=== PATIENT | female | born 1960 | race Caucasian/White ===

== ENCOUNTER 2021-08-13 11:48 | Inpatient (IN) ==
[2021-08-13] MEDS ORDERED: tiZANidine 4 MG TABLET PO PRN (12:29)
[2021-08-13] MEDS: Nystatin POWDER 30 GM BOTTLE TP SCH ×3 (16:16→21:02)
[2021-08-13] MEDS: Gabapentin 300 MG CAPSULE PO SCH ×2 (16:16→21:02)
[2021-08-13] MEDS ORDERED: Acetaminophen 325 MG TABLET PO PRN (16:37)
[2021-08-13] MEDS ORDERED: *HR* Warfarin 3 MG TABLET PO ONE (18:00)
[2021-08-13] MEDS ORDERED: Acetaminophen 325 MG TABLET PO SCH (18:00)
[2021-08-13] MEDS ORDERED: Warfarin perPT PO PRN (18:00)
[2021-08-13] MEDS: Budesonide/Formoterol 80/4.5 1 PUFF INH IH SCH (20:28)
[2021-08-13] MEDS: Metoprolol XL (24 HR) Succ 25 MG TAB.ER.24H PO SCH (20:59)
[2021-08-13] MEDS: Magnesium Oxide 400 MG TABLET PO SCH (21:00)
[2021-08-13] MEDS: Topiramate 25 MG TABLET PO SCH (21:00)
[2021-08-14 05:59] LABS: Basophils % 0.4 %; Eosinophils # 0.5 K/mcL (0.0-0.6); Eosinophils % 7.5 %; Hematocrit 26.3 % (35.3-44.9); Hemoglobin 7.9 g/dL (11.5-15.4); Immature Granulocytes % 1.8 % (0-4); Lymphocytes % 14.3 %; Mean Corpuscular Hemoglobin 29.3 pg (28.0-33.3); Mean Corpuscular Volume 97.4 fL (83.0-100.0); Mean Platelet Volume 9.1 fL (9.4-12.4); Monocytes # 0.9 K/mcL (0.0-1.3); Monocytes % 11.8 %; Neutrophils # 4.6 K/mcL (1.6-8.9); Nucleated Red Blood Cells 0.6 /100 WBC (0); Platelet Count 305 K/mcL (140-400); Red Cell Distribution Width 17.3 % (11.5-14.5); Segmented Neutrophils % 64.2 %; White Blood Count 7.2 K/mcL (4.3-11.1)
[2021-08-14 06:05] LABS: INR 4.3
[2021-08-14 06:10] LABS: Prothrombin Time 47.5 Seconds (9.4-12.1)
[2021-08-14 06:22] LABS: BUN/Creatinine Ratio 17 (6-26); Blood Urea Nitrogen 14 mg/dL (6-20); Calcium 8.2 mg/dL (8.6-10.3); Carbon Dioxide 31 mEq/L (23-29); Chloride 98 mEq/L (98-107); Digoxin 0.8 ng/mL (0.8-2.0); Glucose 114 mg/dL (70-105); Osmolality,Calculated 279 (280-300); Potassium 4.2 mEq/L (3.5-5.1); Sodium 134 mEq/L (136-145); eGFR For African Americans > 60 (> 60); eGFR For Non-African Americans > 60 (> 60)
[2021-08-14] MEDS: Topiramate 25 MG TABLET PO SCH ×2 (08:28→20:32)
[2021-08-14] MEDS: Magnesium Oxide 400 MG TABLET PO SCH ×2 (08:28→21:12)
[2021-08-14] MEDS: Metoprolol XL (24 HR) Succ 25 MG TAB.ER.24H PO SCH ×2 (08:28→20:32)
[2021-08-14] MEDS: Nystatin POWDER 30 GM BOTTLE TP SCH ×4 (08:29→20:32)
[2021-08-14] MEDS: Gabapentin 300 MG CAPSULE PO SCH ×3 (08:29→20:32)
[2021-08-14] MEDS ORDERED: *HR* Warfarin 5 MG TABLET PO SCH (09:00)
[2021-08-14] MEDS ORDERED: *HR* Digoxin 0.125 MG TABLET PO SCH (09:00)
[2021-08-14] MEDS ORDERED: Bumetanide 1 MG TABLET PO SCH (09:00)
[2021-08-14] MEDS ORDERED: Primidone 50 MG TABLET PO SCH (09:00)
[2021-08-14] MEDS ORDERED: Tiotropium 10 INH DOSE IH SCH (10:00)
[2021-08-14] MEDS: Budesonide/Formoterol 80/4.5 1 PUFF INH IH SCH ×2 (10:43→21:21)
[2021-08-14] MEDS ORDERED: 0.9 % Sodium Chloride 500 ML IVC PRN (19:53)
[2021-08-14 20:16] LABS: Basophils % 0.5 %; Eosinophils # 0.4 K/mcL (0.0-0.6); Eosinophils % 6.2 %; Hematocrit 24.9 % (35.3-44.9); Hemoglobin 7.5 g/dL (11.5-15.4); Immature Granulocytes % 1.7 % (0-4); Lymphocytes % 14.4 %; Mean Corpuscular HGB Conc 30.1 g/dL (31.6-35.5); Mean Corpuscular Hemoglobin 29.2 pg (28.0-33.3); Mean Corpuscular Volume 96.9 fL (83.0-100.0); Mean Platelet Volume 9.2 fL (9.4-12.4); Monocytes # 0.8 K/mcL (0.0-1.3); Monocytes % 11.7 %; Neutrophils # 4.4 K/mcL (1.6-8.9); Nucleated Red Blood Cells 0.6 /100 WBC (0); Platelet Count 302 K/mcL (140-400); Red Blood Count 2.57 M/mcL (3.82-4.97); Red Cell Distribution Width 17.3 % (11.5-14.5); Segmented Neutrophils % 65.5 %; White Blood Count 6.7 K/mcL (4.3-11.1)
[2021-08-14 20:18] LABS: INR 4.1
[2021-08-14 20:24] LABS: Prothrombin Time 45.3 Seconds (9.4-12.1)
[2021-08-14] MEDS: Piperacillin/Tazobactam 3.375 GM in 0.9 % Sodium Chloride Mini Bag 100 ML IVPB SCH ×2 (20:46→23:42)
[2021-08-14 21:27] VITALS: RESP 17
[2021-08-14] MEDS ORDERED: Piperacillin/Tazobactam 3.375 GM in 0.9 % Sodium Chloride Mini Bag 100 ML IVPB SCH (22:00)
[2021-08-14] MEDS ORDERED: Morphine Sulfate 2 MG/ML SYRINGE IVP ONE (23:58)
[2021-08-15] MEDS ORDERED: Ringers Solution, Lactated 500 ML IVC ONE
[2021-08-15 00:45] VITALS: BP 115/73; PULSE 88; TEMP 97.9; O2SAT 93
[2021-08-15] MEDS ORDERED: *HR* Warfarin 5 MG TABLET PO SCH (09:00)
[2021-08-16 02:32] LABS: ABG Base Excess 1 mEq/L (-2 to 3); ABG HCO3 26 mEq/L (21-27); ABG Oxygen Saturation 92 % (95-98); ABG PCO2 38 mmHg (35-45); ABG PH 7.44 pH Units (7.32-7.45); ABG PO2 60 mmHg (85-104); ABG TCO2 27 mEq/L (20-26)
== END 2021-08-15 01:54 | disposition short-term general hospital (02) | DRG 920 ==
LOC: INPGRE 15:35
PROVIDERS: ADMIT Family Medicine; ATTEND Family Medicine

== ENCOUNTER 2021-08-15 17:46 | Inpatient (IN) ==
[2021-08-15] MEDS ORDERED: tiZANidine 4 MG TABLET PO PRN (20:55)
[2021-08-15] MEDS: Budesonide/Formoterol 80/4.5 1 PUFF INH IH SCH (21:50)
[2021-08-15] MEDS: Magnesium Oxide 400 MG TABLET PO SCH (21:57)
[2021-08-15] MEDS: Gabapentin 300 MG CAPSULE PO SCH (21:57)
[2021-08-15] MEDS: Topiramate 25 MG TABLET PO SCH (21:57)
[2021-08-15] MEDS: Metoprolol XL (24 HR) Succ 25 MG TAB.ER.24H PO SCH (21:58)
[2021-08-15] MEDS: Nystatin POWDER 30 GM BOTTLE TP SCH (22:03)
[2021-08-16] MEDS: Acetaminophen 325 MG TABLET PO SCH ×5 (00:37→23:59)
[2021-08-16] MEDS: 0.9 % Sodium Chloride 500 ML IVC SCH ×2 (04:42→08:40)
[2021-08-16 04:57] LABS: INR 3.3; Prothrombin Time 36.5 Seconds (9.4-12.1)
[2021-08-16 05:45] LABS: Adenovirus Not Detected (Not Detect); Bordetella Pertussis Not Detected (Not Detect); Chlamydophila pneumoniae Not Detected (Not Detect); Coronavirus 229E Not Detected (Not Detect); Coronavirus HKU1 Not Detected (Not Detect); Coronavirus NL63 Not Detected (Not Detect); Coronavirus OC43 Not Detected (Not Detect); Human Metapneumovirus Not Detected (Not Detect); Human Rhinovirus/Enterovirus Not Detected (Not Detect); Influenza A Subtype 2009 H1 Not Detected (Not Detect); Influenza B Not Detected (Not Detect); Mycoplasma pneumoniae Not Detected (Not Detect); Parainfluenza Virus 1 Not Detected (Not Detect); Parainfluenza Virus 2 Not Detected (Not Detect); Parainfluenza Virus 3 Not Detected (Not Detect); Parainfluenza Virus 4 Not Detected (Not Detect); Respiratory Syncytial Virus Not Detected (Not Detect); SARS-CoV-2 Not Detected (Not Detect)
[2021-08-16 08:04] LABS: Hematocrit 24.2 % (35.3-44.9); Hemoglobin 7.4 g/dL (11.5-15.4); Mean Corpuscular HGB Conc 30.6 g/dL (31.6-35.5); Mean Corpuscular Volume 94.9 fL (83.0-100.0); Mean Platelet Volume 9.3 fL (9.4-12.4); Platelet Count 251 K/mcL (140-400); Red Blood Count 2.55 M/mcL (3.82-4.97); Red Cell Distribution Width 17.6 % (11.5-14.5)
[2021-08-16 08:25] LABS: Alanine Aminotransferase 10 Units/L (7-52); Albumin 2.3 g/dL (3.5-5.7); Albumin/Globulin Ratio 0.7 (1.1-2.2); Alkaline Phosphatase 65 Units/L (34-104); Aspartate Amino Transferase 14 Units/L (13-39); BUN/Creatinine Ratio 16 (6-26); Bilirubin,Total 0.5 mg/dL (0.3-1.0); Blood Urea Nitrogen 12 mg/dL (6-20); Calcium 7.8 mg/dL (8.6-10.3); Carbon Dioxide 31 mEq/L (23-29); Chloride 100 mEq/L (98-107); Globulin 3.2 g/dL (2.4-3.5); Glucose 95 mg/dL (70-105); Magnesium 1.9 mg/dL (1.6-2.6); Osmolality,Calculated 280 (280-300); Phosphorous 3.1 mg/dL (2.7-4.5); Sodium 135 mEq/L (136-145); Total Protein 5.5 g/dL (6.4-8.9); eGFR For African Americans > 60 (> 60); eGFR For Non-African Americans > 60 (> 60)
[2021-08-16] MEDS: cefTRIAXone 1,000 MG in 0.9 % Sodium Chloride 10 ML IVP SCH (08:26)
[2021-08-16] MEDS: Bumetanide 1 MG TABLET PO SCH (08:27)
[2021-08-16] MEDS: Azithromycin 250 MG TABLET PO SCH (08:27)
[2021-08-16] MEDS: Nystatin POWDER 30 GM BOTTLE TP SCH ×4 (08:27→20:24)
[2021-08-16] MEDS: Topiramate 25 MG TABLET PO SCH ×2 (08:28→20:24)
[2021-08-16] MEDS: *HR* Digoxin 0.125 MG TABLET PO SCH (08:28)
[2021-08-16] MEDS: Lactobacillus 1 EACH CAP.SPRINK PO SCH ×2 (08:28→20:24)
[2021-08-16] MEDS: Metoprolol XL (24 HR) Succ 25 MG TAB.ER.24H PO SCH (08:28)
[2021-08-16] MEDS: Gabapentin 300 MG CAPSULE PO SCH (08:29)
[2021-08-16] MEDS: Primidone 50 MG TABLET PO SCH (08:29)
[2021-08-16] MEDS ORDERED: 0.9 % Sodium Chloride 1,000 ML IVC SCH (09:00)
[2021-08-16] MEDS: Magnesium Oxide 400 MG TABLET PO SCH ×2 (10:01→20:24)
[2021-08-16] MEDS: Tiotropium 10 INH DOSE IH SCH (10:12)
[2021-08-16] MEDS: Budesonide/Formoterol 80/4.5 1 PUFF INH IH SCH ×2 (10:13→20:27)
[2021-08-16 15:00] LABS: Bilirubin,Urine Negative (Negative); Blood,Urine Negative (Negative); Clarity,Urine Clear (Clear); Color,Urine Yellow (Yellow); Glucose,Urine (UA) Normal (Normal); Ketones,Urine Negative (Negative); Leukocyte Esterase,Urine Small (Negative); Nitrite,Urine Negative (Negative); PH,Urine 6.5 pH Units (5.0-8.0); Protein,Urine Negative (Neg-Trace); Specific Gravity,Urine 1.015 (1.010-1.025); Urobilinogen,Urine Normal (Normal)
[2021-08-16 15:07] LABS: WBC,Urine 30-50 per hpf (0-3)
[2021-08-16 15:38] LABS: ABG Base Excess 2 mEq/L (-2 to 3); ABG HCO3 28 mEq/L (21-27); ABG Oxygen Saturation 90 % (95-98); ABG PCO2 50 mmHg (35-45); ABG PH 7.36 pH Units (7.32-7.45); ABG PO2 62 mmHg (85-104); ABG TCO2 30 mEq/L (20-26)
[2021-08-16] MEDS ORDERED: *HR* Warfarin 5 MG TABLET PO ONE (18:00)
[2021-08-16] MEDS ORDERED: Warfarin perPT PO PRN (18:00)
[2021-08-17 04:32] LABS: Hematocrit 25.4 % (35.3-44.9); Hemoglobin 7.8 g/dL (11.5-15.4); Mean Corpuscular HGB Conc 30.7 g/dL (31.6-35.5); Mean Corpuscular Hemoglobin 29.4 pg (28.0-33.3); Mean Corpuscular Volume 95.8 fL (83.0-100.0); Mean Platelet Volume 9.6 fL (9.4-12.4); Platelet Count 243 K/mcL (140-400); Red Blood Count 2.65 M/mcL (3.82-4.97); Red Cell Distribution Width 17.9 % (11.5-14.5)
[2021-08-17 04:35] LABS: INR 3.5; Prothrombin Time 38.6 Seconds (9.4-12.1)
[2021-08-17 04:50] LABS: Alanine Aminotransferase 11 Units/L (7-52); Albumin 2.3 g/dL (3.5-5.7); Albumin/Globulin Ratio 0.7 (1.1-2.2); Alkaline Phosphatase 64 Units/L (34-104); Aspartate Amino Transferase 14 Units/L (13-39); BUN/Creatinine Ratio 15 (6-26); Bilirubin,Total 0.4 mg/dL (0.3-1.0); Blood Urea Nitrogen 12 mg/dL (6-20); Calcium 7.8 mg/dL (8.6-10.3); Carbon Dioxide 31 mEq/L (23-29); Chloride 104 mEq/L (98-107); Globulin 3.3 g/dL (2.4-3.5); Glucose 104 mg/dL (70-105); Magnesium 1.7 mg/dL (1.6-2.6); Osmolality,Calculated 284 (280-300); Potassium 4.1 mEq/L (3.5-5.1); Sodium 137 mEq/L (136-145); Total Protein 5.6 g/dL (6.4-8.9); eGFR For African Americans > 60 (> 60); eGFR For Non-African Americans > 60 (> 60)
[2021-08-17] MEDS: Azithromycin 250 MG TABLET PO SCH (07:31)
[2021-08-17] MEDS: Acetaminophen 325 MG TABLET PO SCH ×3 (07:31→17:22)
[2021-08-17] MEDS: cefTRIAXone 1,000 MG in 0.9 % Sodium Chloride 10 ML IVP SCH (07:32)
[2021-08-17] MEDS: Primidone 50 MG TABLET PO SCH (07:32)
[2021-08-17] MEDS: Topiramate 25 MG TABLET PO SCH ×2 (07:32→20:49)
[2021-08-17] MEDS: *HR* Digoxin 0.125 MG TABLET PO SCH (07:32)
[2021-08-17] MEDS: Magnesium Oxide 400 MG TABLET PO SCH ×2 (07:32→20:49)
[2021-08-17] MEDS: Lactobacillus 1 EACH CAP.SPRINK PO SCH ×2 (07:32→20:49)
[2021-08-17] MEDS: Metoprolol XL (24 HR) Succ 25 MG TAB.ER.24H PO SCH (07:34)
[2021-08-17] MEDS: Nystatin POWDER 30 GM BOTTLE TP SCH ×4 (07:38→20:50)
[2021-08-17 11:37] LABS: % Iron Saturation 14 % (15-50); Iron 32 mcg/dL (50-170); Transferrin 169 mg/dL (203-362)
[2021-08-17] MEDS: Tiotropium 10 INH DOSE IH SCH (11:50)
[2021-08-17] MEDS: Budesonide/Formoterol 80/4.5 1 PUFF INH IH SCH ×2 (11:51→19:59)
[2021-08-17] MEDS ORDERED: *HR* Warfarin 4 MG TABLET PO ONE (18:00)
[2021-08-18] MEDS: Acetaminophen 325 MG TABLET PO SCH ×2 (04:31→06:13)
[2021-08-18 05:35] LABS: Hematocrit 24.3 % (35.3-44.9); Hemoglobin 7.3 g/dL (11.5-15.4); Mean Corpuscular Hemoglobin 28.6 pg (28.0-33.3); Mean Corpuscular Volume 95.3 fL (83.0-100.0); Mean Platelet Volume 9.8 fL (9.4-12.4); Platelet Count 238 K/mcL (140-400); Red Blood Count 2.55 M/mcL (3.82-4.97); Red Cell Distribution Width 17.7 % (11.5-14.5)
[2021-08-18 05:42] LABS: INR 3.3
[2021-08-18 05:56] LABS: Alanine Aminotransferase 12 Units/L (7-52); Albumin 2.5 g/dL (3.5-5.7); Albumin/Globulin Ratio 0.8 (1.1-2.2); Alkaline Phosphatase 68 Units/L (34-104); Aspartate Amino Transferase 19 Units/L (13-39); BUN/Creatinine Ratio 16 (6-26); Bilirubin,Total 0.4 mg/dL (0.3-1.0); Blood Urea Nitrogen 13 mg/dL (6-20); Calcium 7.8 mg/dL (8.6-10.3); Carbon Dioxide 29 mEq/L (23-29); Chloride 101 mEq/L (98-107); Globulin 3.2 g/dL (2.4-3.5); Glucose 95 mg/dL (70-105); Magnesium 1.5 mg/dL (1.6-2.6); Osmolality,Calculated 280 (280-300); Potassium 4.2 mEq/L (3.5-5.1); Sodium 135 mEq/L (136-145); Total Protein 5.7 g/dL (6.4-8.9); eGFR For African Americans > 60 (> 60); eGFR For Non-African Americans > 60 (> 60)
[2021-08-18] MEDS: Primidone 50 MG TABLET PO SCH (08:41)
[2021-08-18] MEDS: Nystatin POWDER 30 GM BOTTLE TP SCH ×4 (08:41→21:25)
[2021-08-18] MEDS: Metoprolol XL (24 HR) Succ 25 MG TAB.ER.24H PO SCH (08:42)
[2021-08-18] MEDS: Lactobacillus 1 EACH CAP.SPRINK PO SCH ×2 (08:42→21:24)
[2021-08-18] MEDS: cefTRIAXone 1,000 MG in 0.9 % Sodium Chloride 10 ML IVP SCH (08:42)
[2021-08-18] MEDS: *HR* Digoxin 0.125 MG TABLET PO SCH (08:42)
[2021-08-18] MEDS: Topiramate 25 MG TABLET PO SCH ×2 (08:42→21:25)
[2021-08-18] MEDS: Azithromycin 250 MG TABLET PO SCH (08:42)
[2021-08-18] MEDS: Gabapentin 300 MG CAPSULE PO SCH ×3 (08:42→21:24)
[2021-08-18] MEDS: Magnesium Oxide 400 MG TABLET PO SCH ×2 (08:43→21:24)
[2021-08-18] MEDS: Tiotropium 10 INH DOSE IH SCH (10:00)
[2021-08-18] MEDS: Budesonide/Formoterol 80/4.5 1 PUFF INH IH SCH ×3 (10:02→21:09)
[2021-08-18] MEDS ORDERED: *HR* Warfarin 5 MG TABLET PO ONE (18:00)
[2021-08-18] MEDS: Acetaminophen 325 MG TABLET PO PRN (21:24)
[2021-08-19 05:07] LABS: INR 2.7; Prothrombin Time 29.8 Seconds (9.4-12.1)
[2021-08-19] MEDS: Tiotropium 10 INH DOSE IH SCH (09:01)
[2021-08-19] MEDS: Budesonide/Formoterol 80/4.5 1 PUFF INH IH SCH ×2 (09:02→20:59)
[2021-08-19] MEDS: cefTRIAXone 1,000 MG in 0.9 % Sodium Chloride 10 ML IVP SCH (09:14)
[2021-08-19] MEDS: Primidone 50 MG TABLET PO SCH (09:17)
[2021-08-19] MEDS: Gabapentin 300 MG CAPSULE PO SCH ×3 (09:17→19:53)
[2021-08-19] MEDS: Magnesium Oxide 400 MG TABLET PO SCH ×2 (09:18→19:53)
[2021-08-19] MEDS: Bumetanide 1 MG TABLET PO SCH (09:19)
[2021-08-19] MEDS: Topiramate 25 MG TABLET PO SCH ×2 (09:19→19:54)
[2021-08-19] MEDS: Lactobacillus 1 EACH CAP.SPRINK PO SCH ×2 (09:19→19:54)
[2021-08-19] MEDS: Metoprolol XL (24 HR) Succ 25 MG TAB.ER.24H PO SCH (09:19)
[2021-08-19] MEDS: Nystatin POWDER 30 GM BOTTLE TP SCH ×4 (09:19→19:55)
[2021-08-19] MEDS: *HR* Digoxin 0.125 MG TABLET PO SCH (09:19)
[2021-08-19] MEDS ORDERED: *HR* Warfarin 7.5 MG TABLET PO ONE (18:00)
[2021-08-20 05:40] LABS: Hematocrit 24.5 % (35.3-44.9); Hemoglobin 7.2 g/dL (11.5-15.4); Mean Corpuscular HGB Conc 29.4 g/dL (31.6-35.5); Mean Corpuscular Hemoglobin 28.6 pg (28.0-33.3); Mean Corpuscular Volume 97.2 fL (83.0-100.0); Mean Platelet Volume 9.9 fL (9.4-12.4); Platelet Count 212 K/mcL (140-400); Red Blood Count 2.52 M/mcL (3.82-4.97); Red Cell Distribution Width 18.6 % (11.5-14.5); White Blood Count 6.6 K/mcL (4.3-11.1)
[2021-08-20 06:05] LABS: Alanine Aminotransferase 10 Units/L (7-52); Albumin 2.4 g/dL (3.5-5.7); Albumin/Globulin Ratio 0.8 (1.1-2.2); Alkaline Phosphatase 62 Units/L (34-104); Aspartate Amino Transferase 14 Units/L (13-39); BUN/Creatinine Ratio 16 (6-26); Bilirubin,Total 0.4 mg/dL (0.3-1.0); Blood Urea Nitrogen 14 mg/dL (6-20); Calcium 7.9 mg/dL (8.6-10.3); Carbon Dioxide 31 mEq/L (23-29); Chloride 99 mEq/L (98-107); Globulin 3.1 g/dL (2.4-3.5); Glucose 92 mg/dL (70-105); Magnesium 1.5 mg/dL (1.6-2.6); Osmolality,Calculated 272 (280-300); Potassium 4.1 mEq/L (3.5-5.1); Sodium 131 mEq/L (136-145); Total Protein 5.5 g/dL (6.4-8.9); eGFR For African Americans > 60 (> 60); eGFR For Non-African Americans > 60 (> 60)
[2021-08-20 06:51] LABS: INR 2.3; Prothrombin Time 25.2 Seconds (9.4-12.1)
[2021-08-20] MEDS: Tiotropium 10 INH DOSE IH SCH (08:01)
[2021-08-20] MEDS: Budesonide/Formoterol 80/4.5 1 PUFF INH IH SCH (08:01)
[2021-08-20] MEDS: Lactobacillus 1 EACH CAP.SPRINK PO SCH ×2 (09:18→21:25)
[2021-08-20] MEDS: Gabapentin 300 MG CAPSULE PO SCH ×3 (09:18→21:26)
[2021-08-20] MEDS: Bumetanide 1 MG TABLET PO SCH (09:18)
[2021-08-20] MEDS: Magnesium Oxide 400 MG TABLET PO SCH ×2 (09:18→21:25)
[2021-08-20] MEDS: Topiramate 25 MG TABLET PO SCH ×2 (09:18→21:26)
[2021-08-20] MEDS: Primidone 50 MG TABLET PO SCH (09:18)
[2021-08-20] MEDS: cefTRIAXone 1,000 MG in 0.9 % Sodium Chloride 10 ML IVP SCH (09:19)
[2021-08-20] MEDS: *HR* Digoxin 0.125 MG TABLET PO SCH (09:19)
[2021-08-20] MEDS: Metoprolol XL (24 HR) Succ 25 MG TAB.ER.24H PO SCH (09:19)
[2021-08-20] MEDS: Nystatin POWDER 30 GM BOTTLE TP SCH ×4 (09:20→21:26)
[2021-08-20] MEDS ORDERED: tiZANidine 4 MG TABLET PO PRN (17:21)
[2021-08-20] MEDS ORDERED: *HR* Warfarin 5 MG TABLET PO ONE (18:00)
[2021-08-20] MEDS ORDERED: Budesonide/Formoterol 80/4.5 1 PUFF INH IH SCH (18:00)
[2021-08-20] MEDS ORDERED: Tiotropium 10 INH DOSE IH SCH (18:00)
[2021-08-20] MEDS: Acetaminophen 325 MG TABLET PO PRN (18:07)
[2021-08-21] MEDS: Tiotropium 10 INH DOSE IH SCH (12:57)
[2021-08-21] MEDS ORDERED: Albuterol 2.5 MG/3 ML NEBULIZER IH PRN (16:50)
[2021-08-21] MEDS ORDERED: Bumetanide 1 MG TABLET PO ONE (16:52)
[2021-08-21] MEDS: Budesonide/Formoterol 80/4.5 1 PUFF INH IH SCH (18:28)
[2021-08-21] MEDS: Nystatin POWDER 30 GM BOTTLE TP SCH ×2 (18:44→22:25)
[2021-08-21] MEDS ORDERED: *HR* Warfarin 7.5 MG TABLET PO ONE (20:30)
[2021-08-21] MEDS: Gabapentin 300 MG CAPSULE PO SCH (20:36)
[2021-08-21] MEDS: Lactobacillus 1 EACH CAP.SPRINK PO SCH (20:37)
[2021-08-21] MEDS: Primidone 50 MG TABLET PO SCH (20:39)
[2021-08-21] MEDS: Magnesium Oxide 400 MG TABLET PO SCH (20:40)
[2021-08-21] MEDS: Melatonin 3 MG TABLET PO PRN (20:41)
[2021-08-21] MEDS: Topiramate 25 MG TABLET PO SCH (20:41)
[2021-08-21] MEDS: tiZANidine 4 MG TABLET PO PRN (20:57)
[2021-08-22 04:57] LABS: Basophils % 0.5 %; Eosinophils # 0.3 K/mcL (0.0-0.6); Eosinophils % 4.8 %; Hematocrit 23.4 % (35.3-44.9); Hemoglobin 7.1 g/dL (11.5-15.4); INR 2.4; Lymphocytes # 1.2 K/mcL (0.6-4.6); Lymphocytes % 21.5 %; Mean Corpuscular HGB Conc 30.3 g/dL (31.6-35.5); Mean Corpuscular Volume 95.5 fL (83.0-100.0); Mean Platelet Volume 9.7 fL (9.4-12.4); Monocytes # 0.7 K/mcL (0.0-1.3); Monocytes % 11.9 %; Neutrophils # 3.3 K/mcL (1.6-8.9); Nucleated Red Blood Cells 0.5 /100 WBC (0); Platelet Count 193 K/mcL (140-400); Prothrombin Time 26.7 Seconds (9.4-12.1); Red Blood Count 2.45 M/mcL (3.82-4.97); Red Cell Distribution Width 18.7 % (11.5-14.5); Segmented Neutrophils % 59.3 %; White Blood Count 5.6 K/mcL (4.3-11.1)
[2021-08-22 05:10] LABS: BUN/Creatinine Ratio 18 (6-26); Blood Urea Nitrogen 15 mg/dL (6-20); Calcium 8.1 mg/dL (8.6-10.3); Carbon Dioxide 31 mEq/L (23-29); Chloride 102 mEq/L (98-107); Glucose 96 mg/dL (70-105); Osmolality,Calculated 285 (280-300); Potassium 4.4 mEq/L (3.5-5.1); Sodium 137 mEq/L (136-145); eGFR For African Americans > 60 (> 60); eGFR For Non-African Americans > 60 (> 60)
[2021-08-22] MEDS: Tiotropium 10 INH DOSE IH SCH (07:53)
[2021-08-22] MEDS: Budesonide/Formoterol 80/4.5 1 PUFF INH IH SCH ×2 (07:54→18:57)
[2021-08-22] MEDS: Lactobacillus 1 EACH CAP.SPRINK PO SCH ×2 (08:19→22:14)
[2021-08-22] MEDS: Topiramate 25 MG TABLET PO SCH ×2 (08:20→22:13)
[2021-08-22] MEDS: Gabapentin 300 MG CAPSULE PO SCH ×3 (08:20→22:13)
[2021-08-22] MEDS: Magnesium Oxide 400 MG TABLET PO SCH ×2 (08:20→22:12)
[2021-08-22] MEDS: Nystatin POWDER 30 GM BOTTLE TP SCH ×4 (08:23→22:14)
[2021-08-22] MEDS: *HR* Digoxin 0.125 MG TABLET PO SCH (08:31)
[2021-08-22] MEDS: Metoprolol XL (24 HR) Succ 25 MG TAB.ER.24H PO SCH (08:32)
[2021-08-22] MEDS: tiZANidine 4 MG TABLET PO PRN ×2 (13:11→22:13)
[2021-08-22] MEDS: Bumetanide 1 MG TABLET PO SCH (13:44)
[2021-08-22] MEDS ORDERED: *HR* Warfarin 7.5 MG TABLET PO ONE (18:00)
[2021-08-22] MEDS ORDERED: Furosemide 20 MG/2 ML VIAL IVP ONE (18:37)
[2021-08-22] MEDS: Primidone 50 MG TABLET PO SCH (22:14)
[2021-08-22] MEDS: Melatonin 3 MG TABLET PO PRN (22:14)
[2021-08-23 04:42] LABS: Hematocrit 22.3 % (35.3-44.9); Hemoglobin 6.8 g/dL (11.5-15.4); Mean Corpuscular HGB Conc 30.5 g/dL (31.6-35.5); Mean Corpuscular Hemoglobin 29.8 pg (28.0-33.3); Mean Corpuscular Volume 97.8 fL (83.0-100.0); Mean Platelet Volume 9.8 fL (9.4-12.4); Platelet Count 199 K/mcL (140-400); Red Blood Count 2.28 M/mcL (3.82-4.97); Red Cell Distribution Width 19.1 % (11.5-14.5); White Blood Count 6.3 K/mcL (4.3-11.1)
[2021-08-23 04:48] LABS: INR 2.6; Prothrombin Time 28.8 Seconds (9.4-12.1)
[2021-08-23] MEDS: Tiotropium 10 INH DOSE IH SCH (07:42)
[2021-08-23] MEDS: Budesonide/Formoterol 80/4.5 1 PUFF INH IH SCH ×2 (07:42→19:32)
[2021-08-23] MEDS ORDERED: Furosemide 20 MG/2 ML VIAL IVP ONE (08:23)
[2021-08-23] MEDS: *HR* Digoxin 0.125 MG TABLET PO SCH (08:27)
[2021-08-23] MEDS: Topiramate 25 MG TABLET PO SCH ×2 (08:27→19:43)
[2021-08-23] MEDS: Lactobacillus 1 EACH CAP.SPRINK PO SCH ×2 (08:27→19:41)
[2021-08-23] MEDS: Metoprolol XL (24 HR) Succ 25 MG TAB.ER.24H PO SCH (08:27)
[2021-08-23] MEDS: Gabapentin 300 MG CAPSULE PO SCH ×3 (08:27→19:41)
[2021-08-23] MEDS: Bumetanide 1 MG TABLET PO SCH (08:27)
[2021-08-23] MEDS: Cyanocobalamin (B-12) 1,000 MCG TABLET PO SCH (08:27)
[2021-08-23] MEDS: Magnesium Oxide 400 MG TABLET PO SCH ×2 (08:27→19:43)
[2021-08-23] MEDS ORDERED: 0.9 % Sodium Chloride 250 ML IVC SCH (08:30)
[2021-08-23] MEDS: Nystatin POWDER 30 GM BOTTLE TP SCH ×4 (09:00→19:44)
[2021-08-23] MEDS ORDERED: *HR* Warfarin 7.5 MG TABLET PO ONE (18:00)
[2021-08-23] MEDS: Melatonin 3 MG TABLET PO PRN (19:41)
[2021-08-23] MEDS: Acetaminophen 325 MG TABLET PO PRN (19:42)
[2021-08-23] MEDS: tiZANidine 4 MG TABLET PO PRN (19:43)
[2021-08-23] MEDS: Primidone 50 MG TABLET PO SCH (19:43)
[2021-08-24] MEDS ORDERED: 0.9 % Sodium Chloride 250 ML IV ONE (02:32)
[2021-08-24 04:42] LABS: Hemoglobin 7.8 g/dL (11.5-15.4); Mean Corpuscular Hemoglobin 29.3 pg (28.0-33.3); Mean Corpuscular Volume 97.7 fL (83.0-100.0); Mean Platelet Volume 9.7 fL (9.4-12.4); Platelet Count 202 K/mcL (140-400); Red Blood Count 2.66 M/mcL (3.82-4.97); Red Cell Distribution Width 18.6 % (11.5-14.5); White Blood Count 5.9 K/mcL (4.3-11.1)
[2021-08-24 04:43] LABS: INR 2.3; Prothrombin Time 25.7 Seconds (9.4-12.1)
[2021-08-24 04:57] LABS: Alanine Aminotransferase 10 Units/L (7-52); Albumin 2.5 g/dL (3.5-5.7); Albumin/Globulin Ratio 0.8 (1.1-2.2); Alkaline Phosphatase 62 Units/L (34-104); Aspartate Amino Transferase 12 Units/L (13-39); BUN/Creatinine Ratio 18 (6-26); Bilirubin,Total 0.3 mg/dL (0.3-1.0); Blood Urea Nitrogen 15 mg/dL (6-20); Carbon Dioxide 31 mEq/L (23-29); Chloride 103 mEq/L (98-107); Glucose 96 mg/dL (70-105); Magnesium 1.6 mg/dL (1.6-2.6); Osmolality,Calculated 287 (280-300); Potassium 4.2 mEq/L (3.5-5.1); Sodium 138 mEq/L (136-145); Total Protein 5.5 g/dL (6.4-8.9); eGFR For African Americans > 60 (> 60); eGFR For Non-African Americans > 60 (> 60)
[2021-08-24] MEDS: Tiotropium 10 INH DOSE IH SCH (07:27)
[2021-08-24] MEDS: Budesonide/Formoterol 80/4.5 1 PUFF INH IH SCH ×2 (07:27→19:03)
[2021-08-24] MEDS: Gabapentin 300 MG CAPSULE PO SCH ×3 (09:00→19:34)
[2021-08-24] MEDS: Lactobacillus 1 EACH CAP.SPRINK PO SCH ×2 (09:00→19:36)
[2021-08-24] MEDS: Metoprolol XL (24 HR) Succ 25 MG TAB.ER.24H PO SCH (09:00)
[2021-08-24] MEDS: *HR* Digoxin 0.125 MG TABLET PO SCH (09:00)
[2021-08-24] MEDS: Bumetanide 1 MG TABLET PO SCH (09:00)
[2021-08-24] MEDS: Magnesium Oxide 400 MG TABLET PO SCH ×2 (09:00→19:35)
[2021-08-24] MEDS: Cyanocobalamin (B-12) 1,000 MCG TABLET PO SCH (09:01)
[2021-08-24] MEDS: Nystatin POWDER 30 GM BOTTLE TP SCH ×4 (09:01→19:38)
[2021-08-24] MEDS: Topiramate 25 MG TABLET PO SCH ×2 (09:01→19:36)
[2021-08-24] MEDS: tiZANidine 4 MG TABLET PO PRN ×2 (12:11→19:35)
[2021-08-24 12:16] LABS: C-Reactive Protein 27 mg/L (Less than 10); Iron 41 mcg/dL (50-170)
[2021-08-24 12:18] LABS: % Iron Saturation 14 % (15-50); Transferrin 208 mg/dL (203-362)
[2021-08-24 12:41] LABS: Folate 4.3 ng/mL (3.0-16.0)
[2021-08-24] MEDS ORDERED: *HR* Warfarin 5 MG TABLET PO ONE (18:00)
[2021-08-24] MEDS: Primidone 50 MG TABLET PO SCH (19:33)
[2021-08-24] MEDS: Melatonin 3 MG TABLET PO PRN (19:34)
[2021-08-24] MEDS: Acetaminophen 325 MG TABLET PO PRN (19:34)
[2021-08-24] MEDS: TROSPIUM CHLORIDE 20 MG PO SCH (19:37)
[2021-08-25 04:42] LABS: INR 2.6; Prothrombin Time 28.8 Seconds (9.4-12.1)
[2021-08-25] MEDS: Tiotropium 10 INH DOSE IH SCH (07:30)
[2021-08-25] MEDS: Budesonide/Formoterol 80/4.5 1 PUFF INH IH SCH ×2 (07:30→19:09)
[2021-08-25] MEDS: Magnesium Oxide 400 MG TABLET PO SCH ×2 (08:58→20:24)
[2021-08-25] MEDS: Nystatin POWDER 30 GM BOTTLE TP SCH ×4 (08:59→20:24)
[2021-08-25] MEDS: Topiramate 25 MG TABLET PO SCH ×2 (08:59→20:24)
[2021-08-25] MEDS: Cyanocobalamin (B-12) 1,000 MCG TABLET PO SCH (08:59)
[2021-08-25] MEDS: *HR* Digoxin 0.125 MG TABLET PO SCH (08:59)
[2021-08-25] MEDS: Bumetanide 1 MG TABLET PO SCH (08:59)
[2021-08-25] MEDS: Gabapentin 300 MG CAPSULE PO SCH ×3 (08:59→20:24)
[2021-08-25] MEDS: TROSPIUM CHLORIDE 20 MG PO SCH ×2 (09:08→20:25)
[2021-08-25] MEDS: Metoprolol XL (24 HR) Succ 25 MG TAB.ER.24H PO SCH (09:09)
[2021-08-25] MEDS ORDERED: Gabapentin 300 MG CAPSULE PO ONE (10:27)
[2021-08-25] MEDS: Lactobacillus 1 EACH CAP.SPRINK PO SCH ×2 (11:46→20:24)
[2021-08-25] MEDS ORDERED: MOM Conc 10 ML UD.LIQ PO PRN (12:22)
[2021-08-25] MEDS ORDERED: Furosemide 20 MG TABLET PO ONE (15:45)
[2021-08-25] MEDS ORDERED: *HR* Warfarin 7.5 MG TABLET PO ONE (18:00)
[2021-08-25] MEDS: Primidone 50 MG TABLET PO SCH (20:24)
[2021-08-25] MEDS: Acetaminophen 325 MG TABLET PO PRN (22:44)
[2021-08-25] MEDS: Melatonin 3 MG TABLET PO PRN (22:44)
[2021-08-26 04:56] LABS: Basophils % 0.6 %; Eosinophils # 0.3 K/mcL (0.0-0.6); Eosinophils % 4.1 %; Hematocrit 27.8 % (35.3-44.9); Hemoglobin 8.2 g/dL (11.5-15.4); Immature Granulocytes % 0.6 % (0-4); Lymphocytes # 1.1 K/mcL (0.6-4.6); Lymphocytes % 17.5 %; Mean Corpuscular HGB Conc 29.5 g/dL (31.6-35.5); Mean Corpuscular Hemoglobin 28.6 pg (28.0-33.3); Mean Corpuscular Volume 96.9 fL (83.0-100.0); Mean Platelet Volume 9.3 fL (9.4-12.4); Monocytes # 0.7 K/mcL (0.0-1.3); Monocytes % 11.3 %; Neutrophils # 4.2 K/mcL (1.6-8.9); Platelet Count 238 K/mcL (140-400); Red Blood Count 2.87 M/mcL (3.82-4.97); Red Cell Distribution Width 18.5 % (11.5-14.5); Segmented Neutrophils % 65.9 %; White Blood Count 6.4 K/mcL (4.3-11.1)
[2021-08-26 05:01] LABS: INR 2.4; Prothrombin Time 26.9 Seconds (9.4-12.1)
[2021-08-26 05:14] LABS: Alanine Aminotransferase 10 Units/L (7-52); Albumin 2.7 g/dL (3.5-5.7); Albumin/Globulin Ratio 0.8 (1.1-2.2); Alkaline Phosphatase 70 Units/L (34-104); Aspartate Amino Transferase 12 Units/L (13-39); BUN/Creatinine Ratio 16 (6-26); Bilirubin,Total 0.4 mg/dL (0.3-1.0); Blood Urea Nitrogen 15 mg/dL (6-20); Calcium 8.4 mg/dL (8.6-10.3); Carbon Dioxide 35 mEq/L (23-29); Chloride 99 mEq/L (98-107); Globulin 3.2 g/dL (2.4-3.5); Glucose 99 mg/dL (70-105); Osmolality,Calculated 287 (280-300); Potassium 4.5 mEq/L (3.5-5.1); Sodium 138 mEq/L (136-145); Total Protein 5.9 g/dL (6.4-8.9); eGFR For African Americans > 60 (> 60); eGFR For Non-African Americans > 60 (> 60)
[2021-08-26] MEDS: Budesonide/Formoterol 80/4.5 1 PUFF INH IH SCH ×2 (06:49→18:41)
[2021-08-26] MEDS: Tiotropium 10 INH DOSE IH SCH (06:50)
[2021-08-26] MEDS: Topiramate 25 MG TABLET PO SCH ×2 (09:39→20:20)
[2021-08-26] MEDS: Magnesium Oxide 400 MG TABLET PO SCH ×2 (09:39→20:19)
[2021-08-26] MEDS: Gabapentin 300 MG CAPSULE PO SCH ×3 (09:39→20:21)
[2021-08-26] MEDS: tiZANidine 4 MG TABLET PO PRN ×2 (09:39→20:27)
[2021-08-26] MEDS: Lactobacillus 1 EACH CAP.SPRINK PO SCH ×2 (09:40→20:19)
[2021-08-26] MEDS: Bumetanide 1 MG TABLET PO SCH (09:40)
[2021-08-26] MEDS: Metoprolol XL (24 HR) Succ 25 MG TAB.ER.24H PO SCH ×2 (09:40→11:58)
[2021-08-26] MEDS: Cyanocobalamin (B-12) 1,000 MCG TABLET PO SCH (09:41)
[2021-08-26] MEDS: TROSPIUM CHLORIDE 20 MG PO SCH ×2 (09:41→20:23)
[2021-08-26] MEDS: Nystatin POWDER 30 GM BOTTLE TP SCH ×4 (09:44→20:28)
[2021-08-26] MEDS: *HR* Digoxin 0.125 MG TABLET PO SCH (11:23)
[2021-08-26] MEDS: Furosemide 40 MG TABLET PO SCH (14:42)
[2021-08-26] MEDS ORDERED: Furosemide 40 MG TABLET PO ONE (15:36)
[2021-08-26] MEDS ORDERED: *HR* Warfarin 5 MG TABLET PO ONE (18:00)
[2021-08-26] MEDS: Melatonin 3 MG TABLET PO PRN (20:19)
[2021-08-26] MEDS: Acetaminophen 325 MG TABLET PO PRN (20:20)
[2021-08-26] MEDS: Primidone 50 MG TABLET PO SCH (20:20)
[2021-08-27 05:57] LABS: INR 2.5; Prothrombin Time 27.2 Seconds (9.4-12.1)
[2021-08-27] MEDS: Tiotropium 10 INH DOSE IH SCH (08:16)
[2021-08-27] MEDS: Budesonide/Formoterol 80/4.5 1 PUFF INH IH SCH ×2 (08:17→18:47)
[2021-08-27] MEDS: *HR* Digoxin 0.125 MG TABLET PO SCH (09:31)
[2021-08-27] MEDS: Furosemide 40 MG TABLET PO SCH (09:31)
[2021-08-27] MEDS: tiZANidine 4 MG TABLET PO PRN ×2 (09:31→20:47)
[2021-08-27] MEDS: Magnesium Oxide 400 MG TABLET PO SCH ×2 (09:31→20:47)
[2021-08-27] MEDS: Topiramate 25 MG TABLET PO SCH ×2 (09:32→20:46)
[2021-08-27] MEDS: Cyanocobalamin (B-12) 1,000 MCG TABLET PO SCH (09:32)
[2021-08-27] MEDS: Lactobacillus 1 EACH CAP.SPRINK PO SCH ×2 (09:32→20:45)
[2021-08-27] MEDS: Gabapentin 300 MG CAPSULE PO SCH ×3 (09:32→20:46)
[2021-08-27] MEDS: Metoprolol XL (24 HR) Succ 25 MG TAB.ER.24H PO SCH (09:32)
[2021-08-27] MEDS: Nystatin POWDER 30 GM BOTTLE TP SCH ×4 (09:32→20:51)
[2021-08-27] MEDS: TROSPIUM CHLORIDE 20 MG PO SCH ×2 (09:35→20:49)
[2021-08-27] MEDS: Acetaminophen 325 MG TABLET PO PRN (10:15)
[2021-08-27] MEDS ORDERED: *HR* Warfarin 5 MG TABLET PO ONE (18:00)
[2021-08-27] MEDS: Primidone 50 MG TABLET PO SCH (20:46)
[2021-08-27] MEDS: Melatonin 3 MG TABLET PO PRN (20:48)
[2021-08-28 05:58] LABS: Basophils % 0.5 %; Eosinophils # 0.4 K/mcL (0.0-0.6); Hematocrit 26.1 % (35.3-44.9); Hemoglobin 7.7 g/dL (11.5-15.4); Immature Granulocytes % 0.7 % (0-4); Lymphocytes # 1.2 K/mcL (0.6-4.6); Lymphocytes % 20.4 %; Mean Corpuscular HGB Conc 29.5 g/dL (31.6-35.5); Mean Corpuscular Hemoglobin 29.1 pg (28.0-33.3); Mean Corpuscular Volume 98.5 fL (83.0-100.0); Mean Platelet Volume 9.1 fL (9.4-12.4); Monocytes # 0.7 K/mcL (0.0-1.3); Neutrophils # 3.7 K/mcL (1.6-8.9); Platelet Count 219 K/mcL (140-400); Red Blood Count 2.65 M/mcL (3.82-4.97); Red Cell Distribution Width 18.1 % (11.5-14.5); Segmented Neutrophils % 61.4 %
[2021-08-28 06:08] LABS: INR 2.8; Prothrombin Time 31.3 Seconds (9.4-12.1)
[2021-08-28 06:22] LABS: Alanine Aminotransferase 7 Units/L (7-52); Albumin 2.6 g/dL (3.5-5.7); Albumin/Globulin Ratio 0.8 (1.1-2.2); Alkaline Phosphatase 64 Units/L (34-104); Aspartate Amino Transferase 11 Units/L (13-39); BUN/Creatinine Ratio 17 (6-26); Bilirubin,Total 0.3 mg/dL (0.3-1.0); Blood Urea Nitrogen 17 mg/dL (6-20); Calcium 8.4 mg/dL (8.6-10.3); Carbon Dioxide 35 mEq/L (23-29); Chloride 98 mEq/L (98-107); Globulin 3.1 g/dL (2.4-3.5); Glucose 96 mg/dL (70-105); Magnesium 1.8 mg/dL (1.6-2.6); Osmolality,Calculated 285 (280-300); Potassium 4.2 mEq/L (3.5-5.1); Sodium 137 mEq/L (136-145); Total Protein 5.7 g/dL (6.4-8.9); eGFR For African Americans > 60 (> 60); eGFR For Non-African Americans 55 (> 60)
[2021-08-28 06:56] VITALS: BP 94/56; PULSE 76; TEMP 99.2
[2021-08-28] MEDS: Tiotropium 10 INH DOSE IH SCH (07:33)
[2021-08-28] MEDS: Budesonide/Formoterol 80/4.5 1 PUFF INH IH SCH (07:34)
[2021-08-28 07:38] VITALS: RESP 19; O2SAT 98
[2021-08-28] MEDS: Magnesium Oxide 400 MG TABLET PO SCH (09:33)
[2021-08-28] MEDS: Metoprolol XL (24 HR) Succ 25 MG TAB.ER.24H PO SCH (09:33)
[2021-08-28] MEDS: Lactobacillus 1 EACH CAP.SPRINK PO SCH (09:33)
[2021-08-28] MEDS: Furosemide 40 MG TABLET PO SCH (09:33)
[2021-08-28] MEDS: tiZANidine 4 MG TABLET PO PRN (09:33)
[2021-08-28] MEDS: *HR* Digoxin 0.125 MG TABLET PO SCH (09:34)
[2021-08-28] MEDS: Gabapentin 300 MG CAPSULE PO SCH (09:34)
[2021-08-28] MEDS: Cyanocobalamin (B-12) 1,000 MCG TABLET PO SCH (09:34)
[2021-08-28] MEDS: TROSPIUM CHLORIDE 20 MG PO SCH (09:34)
[2021-08-28] MEDS: Topiramate 25 MG TABLET PO SCH (09:34)
[2021-08-28] MEDS: Nystatin POWDER 30 GM BOTTLE TP SCH (09:35)
[2021-08-28] MEDS ORDERED: *HR* Warfarin 5 MG TABLET PO ONE (18:00)
== END 2021-08-28 12:30 | disposition home health service (06) | DRG 393 ==
LOC: INPGRE 19:49 → UNDODISIN 08-21 02:05 → INPGRE 08-25 18:28
PROVIDERS: ADMIT Family Medicine; ATTEND Family Medicine